=== PATIENT | female | born 1990 | race Asian ===

== ENCOUNTER 2017-09-17 18:54 | Emergency (ER) | payer BC, OTHER ==
[~2017-09-17] VITALS: Ht 162.6 cm; Wt 63.1 kg
[2017-09-17 19:07] VITALS: Ht 162.6 cm; Wt 63.1 kg
[2017-09-17 22:29] LABS: ADD UMIC NO; UR ASCORBIC ACID NEGATIVE (NEGATIVE); UR BILIRUBIN (Dip) NEGATIVE (NEGATIVE); UR BLOOD (Dip) NEGATIVE (NEGATIVE); UR CLARITY CLEAR (CLEAR); UR COLOR STRAW (YELLOW); UR GLUCOSE (Dip) NEGATIVE (NEGATIVE); UR KETONES (Dip) NEGATIVE (NEGATIVE); UR LEUKOCYTE ESTERASE (Dip) NEGATIVE Leu/ul (NEGATIVE); UR NITRITE (Dip) NEGATIVE (NEGATIVE); UR SPECIFIC GRAVITY (Dip) 1.008 (1.003-1.030); UR TOTAL PROTEIN (Dip) NEGATIVE (NEGATIVE); UR UROBILINOGEN (Dip) NEGATIVE (NEGATIVE)
[2017-09-17] MEDS ORDERED: DOCU-144 PO (23:04)
[2017-09-17] MEDS ORDERED: IBUP-1542 PO (23:05)
--- NOTE | 2017-09-17 23:14 | ERD ---
ER Documentation Chief Complaint Chief Complaint sent by urgent care today;per pt she has stool blockage in colon; painx 1wk HPI 27-year-old female patient with no significant past medical history presents to the ED complaining of bilateral flank pain that started intermittently for 5 days. Patient went to an urgent care earlier today and had an x-ray done which showed negative fractures and dislocations of her back. She was told to come to the ER since she had some stool in her colon. Reports that she feels slightly constipated and sometimes has pebble-like stool. States that her back pain is worse with movement. She is unable to describe her pain. Rates it a 6 out of 10. Denies any fever, chest pain, shortness breath, wheezing, abdominal pain, nausea, vomiting, diarrhea, melena, hematemesis, bloody stools. Denies any dysuria, urgency, frequency, hematuria. Eyes any saddle anesthesia, urine or bowel incontinence. ROS All systems reviewed and are negative except as per history of present illness. Medications Home Meds Active Scripts Ibuprofen* (Motrin*) 600 Mg Tab, 600 MG PO Q6, #20 TAB Prov:GIULIANO NASCIMENTO PA-C 09/17/17 Docusate Sodium* (Colace*) 100 Mg Capsule, 100 MG PO TID, #20 CAP Prov:GIULIANO NASCIMENTO PA-C 09/17/17 Allergies Allergies: Coded Allergies: No Known Allergy (Unverified , 09/17/17) PMhx/Soc Medical and Surgical Hx: pt denies Medical Hx, pt denies Surgical Hx History of Surgery: No Anesthesia Reaction: No Hx Neurological Disorder: No Hx Respiratory Disorders: No Hx Cardiac Disorders: No Hx Psychiatric Problems: No Hx Miscellaneous Medical Probl: No Hx Alcohol Use: No Hx Substance Use: No Hx Tobacco Use: No Smoking Status: Never smoker Physical Exam Vitals Vital Signs Date Time Temp Pulse Resp B/P Pulse Ox O2 Delivery O2 Flow Rate FiO2 09/17/17 19:07 98.0 76 20 128/77 99 Physical Exam Const: [id number], well-nourished. In no acute distress. Head: Atraumatic, normocephalic Eyes: Normal Conjunctiva without injection. No purulent discharge. ENT: Normal external ear, nose. Moist oropharynx without tonsillar exudates. Non -erythematous pharynx. Uvula midline. No drooling. No trismus. Neck: No cervical midline tenderness. Full range of motion. No meningismus. No cervical lymphadenopathy. No JVD. Resp: Clear to auscultation bilaterally. No wheezing, rhonchi, rales, or crackles. No accessory muscle use. No retractions. Cardio: Regular rate and rhythm. No murmurs, rubs or gallops. Abd: Soft, nontender, non distended. Normal bowel sounds. No palpable masses. No rebound tenderness. No guarding. Negative McBurney's point. Negative psoas sign. Negative obturator sign. Skin: No petechiae or rashes Back: No midline tenderness. No CVA tenderness. Ext: No cyanosis, or edema. Neur: Awake and alert. Normal gait. Normal coordination. Psych: Normal Mood and Affect Results 24 hrs Laboratory Tests Test 09/17/17 21:30 Urine Color STRAW Urine Clarity CLEAR Urine pH 7.0 Urine Specific Whitwell 1.008 Urine Ketones NEGATIVEmg/dL Urine Nitrite NEGATIVEmg/dL Urine Bilirubin NEGATIVEmg/dL Urine Urobilinogen NEGATIVEmg/dL Urine Leukocyte Esterase NEGATIVELeu/ul Urine Hemoglobin NEGATIVEmg/dL Urine Glucose NEGATIVEmg/dL Urine Total Protein NEGATIVEmg/dl Procedures/MDM This is a 27-year-old female patient with no significant past medical history presents to the ED complaining of bilateral flank pain that started intermittently for the past 5 days. Patient is afebrile and nontoxic- appearing. Patient has normal vital signs. Patient was ordered a urinalysis and urine here in the ED. Negative for leukocyte esterase, hematuria , nitrites. Negative urine . Patient symptoms are likely secondary to musculoskeletal etiology since the pain is worse with movement especially leaning forward. Patient is ambulating here in the ED without difficulty. Denies saddle anesthesia, numbness or tingling, urine or bowel incontinence, weakness. Low suspicion for cauda equina syndrome, cord compression, nephrolithiasis, aortic aneurysm, aortic dissection , epidural abscess, spinal hematoma, malignancy, pyelonephritis, or other emergent conditions. Patient was sent here by the urgent care due to stool in the colon, a CT of the abdomen and pelvis was discussed with the patient at this time and her did not feel that it was necessary. This could be secondary to constipation. Low suspicion for bowel obstruction. She is instructed to return to the ED in 8 -12 hours for a reexamination if symptoms worsen. The next plan of action if for patient to obtain the results from the urgent care and to follow-up with an primary care physician for further evaluation and treatment. Low suspicion for ectopic , ovarian torsion, gastritis, GERD, peptic ulcer disease, cholecystitis, choledocholithiasis, cholangitis, pancreatitis, appendicitis, bowel obstruction, ileus, volvulus, nephrolithiasis, pyelonephritis, hepatitis, perforated viscus, diverticulitis, strangulated/incarcerated hernia, DKA, acute abdomen, mesenteric ischemia or other emergent conditions. Discharge medications: Ibuprofen Follow up with primary care physician in 1-2 days for referral to workforce analyst. Instructed patient to return to the ED sooner for any worsening symptoms. Patient's questions were answered. Patient understood and agreed with discharge plan. Patient discharged stable. Departure Diagnosis: Primary Impression: Flank pain Condition: Stable Patient Instructions: Back Pain (Acute Or Chronic), Constipation (Adult), Flank Pain, Uncertain Cause Referrals: [facility] YOU HAVE RECEIVED A MEDICAL SCREENING EXAM AND THE RESULTS INDICATE THAT YOU DO NOT HAVE A CONDITION THAT REQUIRES URGENT TREATMENT IN THE EMERGENCY DEPARTMENT. FURTHER EVALUATION AND TREATMENT OF YOUR CONDITION CAN WAIT UNTIL YOU ARE SEEN IN YOUR DOCTORS OFFICE WITHIN THE NEXT 1-2 DAYS. IT IS YOUR RESPONSIBILITY TO MAKE AN APPOINTMENT FOR FOLOW-UP CARE. IF YOU HAVE A PRIMARY DOCTOR --you should call your primary doctor and schedule an appointment IF YOU DO NOT HAVE A PRIMARY DOCTOR YOU CAN CALL OUR PHYSICIAN REFERRAL HOTLINE AT IF YOU CAN NOT AFFORD TO SEE A PHYSICIAN YOU CAN CHOSE FROM THE FOLLOWING [facility] [address] [facility] [address] [facility] [facility] [address] [facility] [address] [facility] [address] [facility] [facility]. [address] [facility] YOU HAVE RECEIVED A MEDICAL SCREENING EXAM AND THE RESULTS INDICATE THAT YOU DO NOT HAVE A CONDITION THAT REQUIRES URGENT TREATMENT IN THE EMERGENCY DEPARTMENT. FURTHER EVALUATION AND TREATMENT OF YOUR CONDITION CAN WAIT UNTIL YOU ARE SEEN IN YOUR DOCTORS OFFICE WITHIN THE NEXT 1-2 DAYS. IT IS YOUR RESPONSIBILITY TO MAKE AN APPOINTMENT FOR FOLOW-UP CARE. IF YOU HAVE A PRIMARY DOCTOR --you should call your primary doctor and schedule and appointment IF YOU DO NOT HAVE A PRIMARY DOCTOR YOU CAN CALL OUR PHYSICIAN REFERRAL HOTLINE AT . IF YOU CAN NOT AFFORD TO SEE A PHYSICIAN YOU CAN CHOSE FROM THE FOLLOWING [facility] INSTITUTIONS: [facility] [address] [place] [address] [facility] [address] [place], [place] [id number] [place] [address] [address] [place] [address] [facility]ENT C[facility]/SPECIALTIES Additional Instructions: FOLLOW UP WITH YOUR PRIMARY CARE PHYSICIAN TOMORROW. Return in 8-12 hours for any abdominal pain. Return to this facility if you are not improving as expected - fever, weakness, numbness and tingling in pelvic region, inability to control urine. GIULIANO NASCIMENTO PA-C Sep 17, 2017 23:14
== END 2017-09-17 23:29 | disposition home or self-care (01) ==
LOC: FTE 18:54
DX: R10.9 Unspecified abdominal pain (principal)
CPT/HCPCS: 81003; 99283